=== PATIENT | male | born 1940 | race Caucasian/White ===

== ENCOUNTER 2016-09-29 13:14 | Emergency (ER) | payer MEDICARE, OTHER ==
[2016-09-29 13:47] VITALS: BP 138/63
--- NOTE | 2016-09-29 14:49 | UC ---
Ear Complaint HPI - HPI Summary HPI Summary: THIS MORNING WAS IN SHOWER, FELT LIKE "COTTON WAD" WAS IN LEFT EAR. PATIENT WEARS HEARING AIDS. NO FEVER, NO EAR ACHE, NO SORE THROAT. 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 Denies: Thyroid Disease Cardiovascular History Of: Denies: Cardiac Disorders, Hypertension Respiratory History Of: Denies: COPD, Asthma GI/ History Of: Denies: Ulcer - Surgical History Surgical History: Yes Surgery Procedure, Year, and Place: Bilateral Cataract surgery 2009 - Family History Known Family History: Negative: Respiratory Disease - Social History Occupation: Retired Lives: With Family Alcohol Use: Daily Substance Use Type: None Smoking Status (MU): Former Smoker Review of Systems Constitutional: Negative Skin: Negative Eyes: Negative ENT: Ear Ache Respiratory: Negative Cardiovascular: Negative Gastrointestinal: Negative Genitourinary: Negative Motor: Negative Neurovascular: Negative Musculoskeletal: Negative Neurological: Negative Psychological: Negative All Other Systems Reviewed And Are Negative: Yes Physical Exam Triage Information Reviewed: Yes Appearance: Well-Appearing, No Pain Distress, Well-Nourished Vital Signs: Initial Vital Signs Temp 99.0 F 09/29/16 13:39 Pulse 76 09/29/16 13:39 Resp 18 09/29/16 13:39 BP 138/63 09/29/16 13:39 Pulse Ox 100 09/29/16 13:39 Vital Signs Reviewed: Yes Eye Exam: Normal Eyes: Positive: Conjunctiva Clear ENT: Positive: Pharynx normal, TMs normal, Other: - FORIEGN BODY (HEARING AID BUD) REMOVED USING [place] [employer]CEPS FROM LEFT EAR; EXTERNAL AUDITORY CANAL EDEMATOUS, ERRETHEMA Dental Exam: Normal Neck exam: Normal Neck: Positive: Supple, Nontender, No Lymphadenopathy Respiratory Exam: Normal Respiratory: Positive: Chest non-tender, Lungs clear, Normal breath sounds, No respiratory distress, No accessory muscle use Cardiovascular Exam: Normal Cardiovascular: Positive: RRR, No Murmur, Pulses Normal Abdominal Exam: Normal Abdomen Description: Positive: Nontender, No Organomegaly Musculoskeletal Exam: Normal Musculoskeletal: Positive: Strength Intact Neurological Exam: Normal Psychological Exam: Normal Psychological: Positive: Normal Response To Family Skin Exam: Normal Ear Complaint Course/Dx - Differential Dx/Diagnosis Differential Diagnosis/HQI/PQRI: Foreign Body, Otitis Externa, Otitis Media Provider Diagnoses: LEFT EAR FOREIGN BODY (HEARING AID BUD) REMOVED. LEFT EAR MILD OTITIS EXTERNA Discharge - Discharge Plan Condition: Stable Disposition: HOME Prescriptions: Neomyc/Polym/HC 1% OTIC SUSP* [Cortisporin Otic Susp 1%*] 4 drop LEFT EAR TID # 1 btl Patient Education Materials: Otitis Externa (ED), Ear Foreign Body (ED) Referrals: Amado Mccullough MD [Primary Care Provider] -
== END 2016-09-29 14:42 | disposition home or self-care (01) ==
LOC: UCEAST 13:14
DX: J06.9 Acute upper respiratory infection, unspecified (principal); Z88.2 Allergy status to sulfonamides; J45.909 Unspecified asthma, uncomplicated
CPT/HCPCS: 99212; G0463

== ENCOUNTER 2017-05-09 09:24 | Emergency (ER) | payer MEDICARE, OTHER ==
[2017-05-09 12:12] VITALS: BP 155/60
--- NOTE | 2017-05-09 12:30 | UC ---
Respiratory Complaint HPI - History of Current Complaint Hx Obtained From: Patient Onset/Duration: Gradual Onset - started [address] and cough. cough has worsened and now has fever 99-100 Timing: Constant Severity Initially: Mild Severity Currently: Moderate Aggravating Factors: Deep Breaths, Recumbent Position Alleviating Factors: Nothing - better in mid day Associated Signs And Symptoms: Positive: Fever, Nasal Congestion, Hoarseness. Negative: Dyspnea, Hemoptysis - Risk Factors Pulmonary Embolism Risk Factors: Negative Cardiac Risk Factors: Hypertension <Morgan Simons - Last Filed: 05/09/17 12:23> <Courtney Nieto - Last Filed: 05/09/17 12:50> - History of Current Complaint Chief Complaint: UCRespiratory Stated Complaint: SORE THROAT COUGH Time Seen by Provider: 05/09/17 12:14 - Allergies/Home Medications Allergies/Adverse Reactions: Allergies Allergy/AdvReac Type Severity Reaction Status Date / Time No Known Allergies Allergy Verified 05/09/17 12:07 PMH/Surg Hx/FS Hx/Imm Hx Previously Healthy: Yes Endocrine History: Diabetes Cardiovascular History: Hypertension - Surgical History Surgical History: Yes Surgery Procedure, Year, and Place: Bilateral Cataract surgery 2009 - Family History Known Family History: Negative: Respiratory Disease - Social History Occupation: Retired Lives: With Family Alcohol Use: Daily Substance Use Type: None Smoking Status (MU): Former Smoker <Morgan Simons - Last Filed: 05/09/17 12:23> Review of Systems Constitutional: Fever Skin: Negative Respiratory: Cough Cardiovascular: Negative Gastrointestinal: Negative Genitourinary: Negative Neurological: Negative Psychological: Negative Is Patient Immunocompromised?: No All Other Systems Reviewed And Are Negative: Yes <Morgan Simons - Last Filed: 05/09/17 12:23> Physical Exam Triage Information Reviewed: Yes Appearance: Well-Appearing, No Pain Distress, Well-Nourished Vital Signs: Initial Vital Signs Temp 99.6 F 05/09/17 12:08 Pulse 82 05/09/17 12:08 Resp 16 05/09/17 12:08 BP 155/60 05/09/17 12:08 Pulse Ox 100 05/09/17 12:08 Vital Signs Reviewed: Yes Eyes: Positive: Conjunctiva Clear ENT: Positive: Pharyngeal erythema Neck: Positive: Supple, Nontender Respiratory: Positive: Rhonchi, Other: - productive cough Cardiovascular: Positive: RRR, Pulses Normal, Brisk Capillary Refill Abdominal Exam: Normal Neurological Exam: Normal Psychological Exam: Normal Skin Exam: Normal Skin: Negative: rashes <Morgan Simons - Last Filed: 05/09/17 12:23> Vital Signs: Initial Vital Signs Temp 99.6 F 05/09/17 12:08 Pulse 82 05/09/17 12:08 Resp 16 05/09/17 12:08 BP 155/60 05/09/17 12:08 Pulse Ox 100 05/09/17 12:08 <Courtney Nieto - Last Filed: 05/09/17 12:50> UC Diagnostic Evaluation - Laboratory O2 Sat by Pulse Oximetry: 100 <Morgan Simons - Last Filed: 05/09/17 12:23> Respiratory Course/Dx - Differential Dx/Diagnosis Differential Diagnosis/HQI/PQRI: Bronchitis, Influenza, Lower Resp Infection, Sinusitis Provider Diagnoses: bronchitis <Morgan Simons - Last Filed: 05/09/17 12:23> Discharge <Morgan Simons - Last Filed: 05/09/17 12:23> <Courtney Nieto - Last Filed: 05/09/17 12:50> - Discharge Plan Condition: Stable Disposition: HOME Prescriptions: Azithromycin TAB* [Zithromax TAB (Z-MARILYN) 250 mg #6 tabs] 2 tab PO .TODAY, THEN 1 DAILY #1 marilyn Patient Education Materials: Acute Bronchitis (ED) Referrals: Amado Mccullough MD [Primary Care Provider] - 2 Days (if no better) Additional Instructions: take zithromax antibiotic as directed use over the counter Robitussin DM for cough relief report to ER if you experience shortness of breath or chest pain at anytime Attestation Statement Scribe Attestation: I was available for consult. This patient was seen by the [facility]. The patient was not presented to, seen by, or examined by me. -Napoleon User Type: Provider <Courtney Nieto - Last Filed: 05/09/17 12:50>
== END 2017-05-09 12:43 | disposition home or self-care (01) ==
LOC: UCEAST 09:24
DX: J40 Bronchitis, not specified as acute or chronic (principal); E11.9 Type 2 diabetes mellitus without complications; I10 Essential (primary) hypertension; Z87.891 Personal history of nicotine dependence
CPT/HCPCS: 99212; G0463

== ENCOUNTER 2018-02-28 07:23 | Emergency (ER) | payer MEDICARE, OTHER ==
[2018-02-28 07:37] VITALS: BP 160/76
--- NOTE | 2018-02-28 08:11 | UC ---
Throat Pain/Nasal [place] HPI - History of Current Complaint Chief Complaint: UCRespiratory Stated Complaint: SORE THROAT Time Seen by Provider: 02/28/18 07:26 Hx Obtained From: Patient Onset/Duration: Sudden Onset, Lasting Days Severity: Severe Pain Intensity: 11 Cough: Sputum Appears - Epiglottits Risk Factors Epiglottis Risk Factors: Negative - Allergies/Home Medications Allergies/Adverse Reactions: Allergies Allergy/AdvReac Type Severity Reaction Status Date / Time No Known Allergies Allergy Verified 05/09/17 12:07 PMH/Surg Hx/FS Hx/Imm Hx Previously Healthy: Yes Endocrine History: Diabetes, Dyslipidemia Cardiovascular History: Hypertension - Surgical History Surgical History: Yes Surgery Procedure, Year, and Place: Bilateral Cataract surgery 2009 - Family History Known Family History: Positive: Cardiac Disease, Hypertension Negative: Respiratory Disease - Social History Alcohol Use: None Substance Use Type: None Smoking Status (MU): Former Smoker Review of Systems Constitutional: Negative ENT: Sore Throat All Other Systems Reviewed And Are Negative: Yes Physical Exam Triage Information Reviewed: Yes Appearance: Well-Appearing, No Pain Distress, Well-Nourished Vital Signs: Initial Vital Signs Temp 99.1 F 02/28/18 07:34 Pulse 90 02/28/18 07:34 Resp 16 02/28/18 07:34 BP 160/76 02/28/18 07:34 Pulse Ox 100 02/28/18 07:34 Vital Signs Reviewed: Yes Eyes: Positive: Conjunctiva Clear ENT: Positive: Hearing grossly normal, Other - left tonsillary exudate with ulceration . Opacity in LTM Neck: Positive: Supple, Nontender, No Lymphadenopathy Respiratory: Positive: Chest non-tender, Lungs clear, Normal breath sounds, No respiratory distress Cardiovascular: Positive: RRR, No Murmur, Pulses Normal, Brisk Capillary Refill Throat Pain/Nasal Course/Dx - Course Course Of Treatment: Rapid strep negative, will send for throat culture. Presence of exudate on left tonsil, start amoxil as prescribed, oral hydration, f/u with PMD - Differential Dx/Diagnosis Provider Diagnoses: pharyngitis Discharge - Sign-Out/Discharge Documenting (check all that apply): Patient Departure - Discharge Plan Condition: Good Disposition: HOME Prescriptions: Amoxicillin PO (*) [Amoxicillin 875 MG (*)] 875 mg PO BID 10 Days #20 tab Patient Education Materials: Pharyngitis (ED), Amoxicillin (By mouth) Referrals: Amado Mccullough MD [Primary Care Provider] - - Billing Disposition and Condition Condition: GOOD Disposition: Home
== END 2018-02-28 08:10 | disposition home or self-care (01) ==
LOC: UCEAST 07:23
DX: J02.9 Acute pharyngitis, unspecified (principal)
CPT/HCPCS: 87070; 87651; 99212; G0463